=== PATIENT | male | born 1940 | race Caucasian/White ===

== ENCOUNTER 2021-07-16 08:36 | Inpatient (IN) ==
[2021-07-16] MEDS ORDERED: Lactated Ringers 1000 ml BAG 1,000 ML IV ONE ×2 (08:58→09:18)
[2021-07-16 10:14] LABS: Urine Appearance Cloudy; Urine Bilirubin Negative (Negative); Urine Blood 1+ (Negative); Urine Color Amber; Urine Glucose Negative (Negative); Urine Ketones Negative (Negative); Urine Nitrite Negative (Negative); Urine Protein Negative (Negative); Urine Specific Gravity 1.017 (1.002-1.030); Urine Urobilinogen Negative (Negative)
[2021-07-16 10:20] LABS: ABS Lymphocytes 0.4 10^3/ul (1.0-4.8); ABS Monocytes 0.2 10^3/ul (0-0.8); ABS Neutrophils 6.7 10^3/ul (1.5-7.7); Eosinophil % 0.1 %; Hematocrit 38 % (42-52); Hemoglobin 12.1 g/dL (14.0-18.0); Lymphocyte % 5.4 %; Mean Corpuscular HGB Conc 32 g/dL (31-36); Mean Corpuscular Hemoglobin 27 pg (27-31); Mean Corpuscular Volume 85 fL (80-94); Platelet Count Platelets clumped. 10^3/uL (150-450); Red Blood Count 4.44 10^6 /uL (4.18-5.48); Red Cell Distribution Width 15 % (10-15); White Blood Count 7.3 10^3/uL (3.5-10.8)
[2021-07-16 10:23] LABS: Urine Bacteria Absent (Absent); Urine Red Blood Cell Trace(0-2/hpf) (Absent); Urine Squamous Epithelial Cell Present (Absent); Urine White Blood Cell Trace(0-5/hpf) (Absent)
[2021-07-16 10:25] LABS: Albumin 3.1 g/dL (3.2-5.2); Albumin/Globulin Ratio 1.2 (1-3); C Reactive Protein 174.22 mg/L (<8.01); Calcium 8.8 mg/dL (8.6-10.3); Globulin 2.5 g/dL (2-4); Potassium 4.5 mmol/L (3.5-5.0); Total Bilirubin 0.6 mg/dL (0.2-1.0); Total Protein 5.6 g/dL (6.4-8.9); eGFR CKD-EPI 18.4 (>60)
[2021-07-16 10:48] LABS: Mean Platelet Volume 7.7 fL (7.4-10.4); Platelet Count 120 10^3/uL (150-450)
[2021-07-16 11:02] LABS: Activated Partial Thrombo Time 26.1 seconds (26.0-38.0); INR 1.04 (0.86-1.15)
[2021-07-16 11:07] LABS: High Sensitivity Troponin 1 Hr 73 pg/mL (<20)
[2021-07-16] MEDS ORDERED: Enoxaparin 60 MG/0.6 ML SYR SUBCUT ONE (11:38)
[2021-07-16] MEDS ORDERED: Morphine ORAL CONCENTRATE 5 MG/0.25 ML ORAL.SYRIN SL PRN (12:30)
[2021-07-16] MEDS ORDERED: Albuterol HFA INHALER 8 gm MDI INH PRN (12:30)
[2021-07-16] MEDS ORDERED: Lidocaine 1% MPF 5 ML VIAL INJ ONE (12:56)
[2021-07-16] MEDS ORDERED: Enoxaparin 60 MG/0.6 ML SYR SUBCUT SCH (13:00)
[2021-07-16] MEDS ORDERED: D5W 1/2 NS 1000 ml BAG 1,000 ML IV SCH ×2 (13:00→14:05)
[2021-07-16] MEDS: Pantoprazole VIAL 40 MG VIAL IV SCH (14:13)
[2021-07-16 17:18] LABS: Calcium 8.2 mg/dL (8.6-10.3); Potassium 4.3 mmol/L (3.5-5.0)
[2021-07-16] MEDS: Ondansetron 4 mg VIAL 2 MG/ML 2 ml VIAL IV PRN ×2 (17:32→21:54)
[2021-07-16] MEDS: TPN 24 HR with Dextrose 40% Water 500 ML, Amino Acid Infusion 10% 1,000 ML, Lipid Emuls... CENT\\PICC SCH (17:51)
[2021-07-16 19:08] LABS: Urine Appearance Turbid; Urine Bilirubin Negative (Negative); Urine Blood 3+ (Negative); Urine Color Amber; Urine Glucose Negative (Negative); Urine Ketones Trace (Negative); Urine Nitrite Negative (Negative); Urine Protein 1+(30 mg/dL) (Negative); Urine Specific Gravity 1.015 (1.002-1.030); Urine Urobilinogen Negative (Negative)
[2021-07-16 19:12] LABS: Urine Amorphous Crystals Present (Absent); Urine Bacteria 1+ (Absent); Urine Broad Casts Present (Absent); Urine Red Blood Cell 3+(>10/hpf) (Absent); Urine Squamous Epithelial Cell Present (Absent); Urine White Blood Cell 3+(>20/hpf) (Absent)
[2021-07-16] MEDS: Morphine ORAL CONCENTRATE 5 MG/0.25 ML ORAL.SYRIN SL PRN (21:53)
[2021-07-17 05:56] LABS: ABS Lymphocytes 0.2 10^3/ul (1.0-4.8); ABS Monocytes 0.1 10^3/ul (0-0.8); ABS Neutrophils 1.9 10^3/ul (1.5-7.7); Eosinophil % 0.8 %; Hematocrit 32 % (42-52); Hemoglobin 10.3 g/dL (14.0-18.0); Lymphocyte % 7.3 %; Mean Corpuscular HGB Conc 32 g/dL (31-36); Mean Corpuscular Hemoglobin 27 pg (27-31); Mean Corpuscular Volume 84 fL (80-94); Mean Platelet Volume 7.9 fL (7.4-10.4); Platelet Count 121 10^3/uL (150-450); Red Blood Count 3.78 10^6 /uL (4.18-5.48); Red Cell Distribution Width 15 % (10-15); White Blood Count 2.2 10^3/uL (3.5-10.8)
[2021-07-17 06:42] LABS: Albumin 2.6 g/dL (3.2-5.2); Albumin/Globulin Ratio 1.3 (1-3); Calcium 8.3 mg/dL (8.6-10.3); Magnesium 2.3 mg/dL (1.9-2.7); Phosphorus 3.7 mg/dL (2.5-5.0); Potassium 4.4 mmol/L (3.5-5.0); Total Bilirubin 0.4 mg/dL (0.2-1.0); Total Protein 4.6 g/dL (6.4-8.9); eGFR CKD-EPI 24.2 (>60)
[2021-07-17] MEDS ORDERED: Omeprazole 20 mg CAP (NF) PO SCH (09:00)
[2021-07-17] MEDS ORDERED: amLODIPine/Benazepril 10/20(NF) CAP PO SCH (09:00)
[2021-07-17] MEDS: Enoxaparin 60 MG/0.6 ML SYR SUBCUT SCH (09:52)
[2021-07-17] MEDS: Ondansetron 4 mg VIAL 2 MG/ML 2 ml VIAL IV PRN (09:52)
[2021-07-17] MEDS: Morphine ORAL CONCENTRATE 5 MG/0.25 ML ORAL.SYRIN SL PRN ×2 (09:52→20:27)
[2021-07-17] MEDS: Pantoprazole VIAL 40 MG VIAL IV SCH (09:52)
[2021-07-17] MEDS: Prochlorperazine 5 mg/ml 2 ml VIAL (10 mg) IV PRN ×2 (11:22→20:39)
[2021-07-17] MEDS ORDERED: NS 0.9% 1,000 ML IV ONE (16:45)
[2021-07-17] MEDS: TPN 24 HR with Dextrose 40% Water 500 ML, Amino Acid Infusion 10% 1,000 ML, Lipid Emuls... CENT\\PICC SCH (17:48)
[2021-07-18] MEDS: Ondansetron 4 mg VIAL 2 MG/ML 2 ml VIAL IV PRN (00:58)
[2021-07-18] MEDS: Morphine ORAL CONCENTRATE 5 MG/0.25 ML ORAL.SYRIN SL PRN ×2 (00:58→13:08)
[2021-07-18] MEDS: Pantoprazole VIAL 40 MG VIAL IV SCH (07:49)
[2021-07-18] MEDS: Enoxaparin 60 MG/0.6 ML SYR SUBCUT SCH (07:49)
[2021-07-18 10:40] LABS: ABS Lymphocytes 0.1 10^3/ul (1.0-4.8); ABS Monocytes 0.1 10^3/ul (0-0.8); ABS Neutrophils 2.2 10^3/ul (1.5-7.7); Eosinophil % 0.1 %; Hematocrit 32 % (42-52); Hemoglobin 10.4 g/dL (14.0-18.0); Lymphocyte % 4.6 %; Mean Corpuscular HGB Conc 33 g/dL (31-36); Mean Corpuscular Hemoglobin 27 pg (27-31); Mean Corpuscular Volume 84 fL (80-94); Mean Platelet Volume 8.3 fL (7.4-10.4); Nucleated Red Blood Cells % 0.3; Platelet Count 98 10^3/uL (150-450); Red Blood Count 3.79 10^6 /uL (4.18-5.48); Red Cell Distribution Width 15 % (10-15); White Blood Count 2.4 10^3/uL (3.5-10.8)
[2021-07-18 10:47] LABS: Albumin 2.5 g/dL (3.2-5.2); Albumin/Globulin Ratio 1.3 (1-3); Calcium 7.6 mg/dL (8.6-10.3); Globulin 1.9 g/dL (2-4); Phosphorus 2.3 mg/dL (2.5-5.0); Potassium 4.1 mmol/L (3.5-5.0); Total Bilirubin 0.4 mg/dL (0.2-1.0); Total Protein 4.4 g/dL (6.4-8.9); eGFR CKD-EPI 28.4 (>60)
[2021-07-18] MEDS ORDERED: Potassium Phosphate IV 10 MMOLE in NS 0.9% 250 ml 250 ML IVPB ONE (12:42)
[2021-07-18] MEDS ORDERED: TPN 24 HR with Dextrose 40% Water 500 ML, Amino Acid Infusion 10% 1,000 ML, Lipid Emuls... CENT\\PICC SCH (12:51)
[2021-07-18] MEDS: TPN 24 HR with Dextrose 40% Water 500 ML, Amino Acid Infusion 10% 1,000 ML, Lipid Emuls... CENT\\PICC SCH (17:28)
[2021-07-19 05:44] LABS: Albumin 2.8 g/dL (3.2-5.2); Albumin/Globulin Ratio 1.3 (1-3); Calcium 8.5 mg/dL (8.6-10.3); Globulin 2.1 g/dL (2-4); Magnesium 2.3 mg/dL (1.9-2.7); Phosphorus 2.9 mg/dL (2.5-5.0); Potassium 4.5 mmol/L (3.5-5.0); Total Bilirubin 0.4 mg/dL (0.2-1.0); Total Protein 4.9 g/dL (6.4-8.9); eGFR CKD-EPI 31.2 (>60)
[2021-07-19] MEDS: Enoxaparin 100 MG/ML SYR SUBCUT SCH (08:41)
[2021-07-19] MEDS: Pantoprazole VIAL 40 MG VIAL IV SCH (08:43)
[2021-07-19] MEDS ORDERED: Lidocaine PATCH 5% PATCH TRANSDERM PRN (10:23)
[2021-07-19] MEDS ORDERED: Lorazepam PYXIS KEY PRN (11:58)
[2021-07-19] MEDS: LORazepam 2 mg VIAL 1 ml IV PUSH PRN ×2 (12:38→19:44)
[2021-07-19] MEDS: TPN 24 HR with Dextrose 40% Water 500 ML, Amino Acid Infusion 10% 1,000 ML, Lipid Emuls... CENT\\PICC SCH (17:37)
[2021-07-19] MEDS ORDERED: D5W 1/2 NS IVFLUID 1000 ML IV SCH (23:00)
[2021-07-20] MEDS: LORazepam 2 mg VIAL 1 ml IV PUSH PRN ×2 (03:44→10:55)
[2021-07-20 07:36] VITALS: BP 97/62
[2021-07-20] MEDS: Enoxaparin 100 MG/ML SYR SUBCUT SCH (07:46)
[2021-07-20] MEDS: Pantoprazole VIAL 40 MG VIAL IV SCH (07:46)
== END 2021-07-20 12:20 | disposition hospice, home (50) | DRG 682 ==
LOC: ED 08:36 → EDHOLD 12:39 → MED 15:06
PROVIDERS: ADMIT Internal Medicine Hematology & Oncology; ATTEND Internal Medicine Hematology & Oncology